=== PATIENT | male | born 1965 | race Caucasian/White ===

== ENCOUNTER 2017-04-03 16:36 | Emergency (ER) | payer BC ==
[~2017-04-03] VITALS: Ht 188 cm; Wt 98.0 kg
[2017-04-03 17:51] VITALS: BP 141/87
[2017-04-03] MEDS ORDERED: BACITRACIN ZINC OINT 500U/GM, 0.9 GM ONE (17:56)
[2017-04-03] MEDS ORDERED: BACITRACIN ZINC OINT 500U/GM, 0.9 GM TP ONE (18:00)
[2017-04-03] MEDS ORDERED: PLEASE ENTER ALLERGIES MC SCH (18:30)
== END 2017-04-03 18:23 | disposition home or self-care (01) ==
LOC: ED 18:16
DX: S06.0X9A Concussion with loss of consciousness of unspecified duration, initial encounter (principal); S00.81XA Abrasion of other part of head, initial encounter; W22.8XXA Striking against or struck by other objects, initial encounter; Y93.55 Activity, bike riding; Y92.828 Other wilderness area as the place of occurrence of the external cause; Y99.8 Other external cause status
CPT/HCPCS: 70450; 99284